=== PATIENT | male | born 1970 | race African-American/Black ===

== ENCOUNTER 2017-02-14 19:23 | Emergency (ER) | payer MEDICAID ==
[~2017-02-14] VITALS: Ht 182.9 cm; Wt 154.3 kg
[~2017-02-14 19:23] MED LIST: CYCL-374; ENAL5TAB; METF500T4; METO100T9 PO; ROSU10TA PO; SITA25TA3
[2017-02-14] MEDS ORDERED: KETOROLAC 60MG/2ML VIAL IM ONE (21:45)
[2017-02-14 22:07] VITALS: BP 119/69
== END 2017-02-14 22:35 | disposition home or self-care (01) ==
LOC: ER 20:13
DX: M25.561 Pain in right knee (principal); M25.532 Pain in left wrist; F17.200 Nicotine dependence, unspecified, uncomplicated; Z90.89 Acquired absence of other organs; W18.30XA Fall on same level, unspecified, initial encounter
CPT/HCPCS: 29125; 73110; 73562; 96372; 99284; J1885; L1830; Z7610

== ENCOUNTER 2018-06-01 09:27 | Emergency (ER) | payer MEDICAID ==
[~2018-06-01] VITALS: Ht 185.4 cm; Wt 148.0 kg
[~2018-06-01 09:27] MED LIST changes: -CYCL-374; +CYCL10TA7; -METF500T4; +METF500T6
[2018-06-01] MEDS ORDERED: SODIUM CHLORIDE 0.9% 1,000 ML IV ONE (10:03)
[2018-06-01] MEDS ORDERED: ONDANSETRON HCL 4MG/2ML VIAL IV STA (10:03)
[2018-06-01 10:15] VITALS: BP 141/76
[2018-06-01 11:03] LABS: CHLORIDE 110 mEq/L (98-107)
[2018-06-01 11:04] LABS: BASOPHILS % 0.6 % (0.0-2.0); EOSINOPHILS % 1.7 % (0.0-5.0); HEMATOCRIT. 46.6 % (42.0-52.0); HEMOGLOBIN. 15.6 g/dL (14.0-18.0); LYMPHOCYTES % 35.5 % (20.0-50.0); MEAN CORPUSCULAR HEMOGLOBIN 29.6 pg (28.0-32.0); MEAN CORPUSCULAR VOLUME 88.4 fL (80.0-94.0); MONOCYTES % 6.4 % (2.0-8.0); NEUTROPHILS % 55.8 % (40.0-76.0); PLATELET 242 x1000/uL (130-400); RED BLOOD CELL COUNT 5.27 mill/uL (4.7-6.1); RED CELL DISTRIBUTION WIDTH 14.8 % (11.6-14.6)
[2018-06-01 11:15] LABS: INR 1.2; PROTHROMBIN TIME 11.6 sec (9.1-11.1)
[2018-06-01 11:20] LABS: CREATINE KINASE 122 IU/L (39-308); CREATINE KINASE MB FRACTION 1.2 ng/mL (0.5-3.6)
[2018-06-01 11:25] LABS: CLARITY URINE CLEAR (CLEAR); COLOR URINE DARK YELLOW (YELLOW); KETONES URINE 2+ (NEGATIVE); LEUKOCYTE ESTERASE URINE NEGATIVE (NEGATIVE); NITRITE URINE NEGATIVE (NEGATIVE); OCCULT BLOOD URINE NEGATIVE (NEGATIVE); PH URINE 5.5 (4.5-8.0); PROTEIN URINE NEGATIVE (NEGATIVE); SPECIFIC GRAVITY URINE 1.033 (1.005-1.030)
== END 2018-06-01 12:31 | disposition home or self-care (01) ==
LOC: ER 09:27
DX: R53.1 Weakness (principal); R42 Dizziness and giddiness; I10 Essential (primary) hypertension; E86.0 Dehydration; E78.00 Pure hypercholesterolemia, unspecified; E66.01 Morbid (severe) obesity due to excess calories; R00.1 Bradycardia, unspecified; Z68.41 Body mass index [BMI] 40.0-44.9, adult; Z90.49 Acquired absence of other specified parts of digestive tract
CPT/HCPCS: 36415; 71045; 80053; 81003; 82550; 82553; 83690; 83735; 83880; 84484; 85025; 85610; 85730; 93005; 96361; 96374; 99285; J2405; J7030

== ENCOUNTER 2019-11-12 11:20 | Emergency (ER) | payer MEDICAID ==
[~2019-11-12] VITALS: Ht 182.9 cm; Wt 155.0 kg
[~2019-11-12 11:20] MED LIST changes: +CRES10 PO; +METF-414; -METF500T6; -ROSU10TA PO
[2019-11-12 11:49] VITALS: BP 151/89
== END 2019-11-12 16:35 | disposition left against medical advice (07) ==
LOC: ER 11:20
DX: Z53.21 Procedure and treatment not carried out due to patient leaving prior to being seen by health care provider (principal)

== ENCOUNTER 2019-11-14 07:02 | Emergency (ER) | payer MEDICAID ==
[~2019-11-14] VITALS: Ht 170.2 cm; Wt 136.0 kg
[2019-11-14] MEDS ORDERED: HYDROCODONE/ACETAMINOPHEN 5/325MG TABLET PO STA (07:56)
[2019-11-14 09:04] LABS: CLARITY URINE CLEAR (CLEAR); COLOR URINE YELLOW (YELLOW); KETONES URINE NEGATIVE (NEGATIVE); LEUKOCYTE ESTERASE URINE NEGATIVE (NEGATIVE); NITRITE URINE NEGATIVE (NEGATIVE); OCCULT BLOOD URINE NEGATIVE (NEGATIVE); PH URINE 6.5 (4.5-8.0); PROTEIN URINE NEGATIVE (NEGATIVE); SPECIFIC GRAVITY URINE 1.024 (1.005-1.030)
[2019-11-14 09:32] LABS: CHLORIDE 109 mEq/L (98-107)
[2019-11-14 09:41] LABS: BASOPHILS % 0.9 % (0.0-2.0); EOSINOPHILS % 2.8 % (0.0-5.0); HEMOGLOBIN. 16.5 g/dL (14.0-18.0); LYMPHOCYTES % 35.5 % (20.0-50.0); MEAN CORPUSCULAR HEMOGLOBIN 29.2 pg (28.0-32.0); MEAN CORPUSCULAR VOLUME 88.3 fL (80.0-94.0); MEAN PLATELET VOLUME 7.8 fl (7.4-10.4); MONOCYTES % 6.3 % (2.0-8.0); NEUTROPHILS % 54.5 % (40.0-76.0); PLATELET 236 x1000/uL (130-400); RED BLOOD CELL COUNT 5.67 mill/uL (4.7-6.1); RED CELL DISTRIBUTION WIDTH 14.8 % (11.6-14.6)
[2019-11-14 10:29] VITALS: BP 134/85
== END 2019-11-14 10:31 | disposition home or self-care (01) ==
LOC: ER 07:30
DX: R30.0 Dysuria (principal); N53.12 Painful ejaculation; N40.0 Benign prostatic hyperplasia without lower urinary tract symptoms; Z98.84 Bariatric surgery status; Z90.49 Acquired absence of other specified parts of digestive tract; Z88.3 Allergy status to other anti-infective agents
CPT/HCPCS: 36415; 80053; 81003; 85025; 99283; Z7610

== ENCOUNTER 2020-07-08 15:20 | Emergency (ER) | payer MEDICAID ==
[~2020-07-08] VITALS: Ht 193 cm; Wt 170.0 kg
[2020-07-08] MEDS ORDERED: ASPIRIN 81MG TABLET PO ONE (17:15)
[2020-07-08] MEDS ORDERED: FAMOTIDINE 20MG TABLET PO ONE (17:15)
[2020-07-08] MEDS ORDERED: VISCOUS LIDOCAINE 2% 15 ML UDC PO ONE (17:15)
[2020-07-08] MEDS ORDERED: MAGNESIUM/ALUMINUM HYDROXIDE/SIMETHICONE 30ML UDC PO ONE (17:15)
[2020-07-08 17:27] LABS: CHLORIDE 110 mEq/L (98-107)
[2020-07-08 17:28] LABS: BASOPHILS % 0.7 % (0.0-2.0); EOSINOPHILS % 1.7 % (0.0-5.0); HEMATOCRIT. 47.1 % (42.0-52.0); HEMOGLOBIN. 15.7 g/dL (14.0-18.0); LYMPHOCYTES % 26.6 % (20.0-50.0); MEAN CORPUSCULAR VOLUME 87.2 fL (80.0-94.0); MEAN PLATELET VOLUME 7.8 fl (7.4-10.4); MONOCYTES % 7.9 % (2.0-8.0); NEUTROPHILS % 63.1 % (40.0-76.0); PLATELET 240 x1000/uL (130-400); RED BLOOD CELL COUNT 5.41 mill/uL (4.7-6.1); RED CELL DISTRIBUTION WIDTH 15.2 % (11.6-14.6)
[2020-07-08 20:00] VITALS: BP 134/87
== END 2020-07-08 22:01 | disposition home or self-care (01) ==
LOC: ER 15:20
DX: K21.9 Gastro-esophageal reflux disease without esophagitis (principal); F17.290 Nicotine dependence, other tobacco product, uncomplicated; Z88.1 Allergy status to other antibiotic agents; Z79.899 Other long term (current) drug therapy; Z90.49 Acquired absence of other specified parts of digestive tract; Z98.890 Other specified postprocedural states
CPT/HCPCS: 36415; 71045; 80053; 83690; 83880; 84484; 85025; 93005; 99285; 99406; Z7610

== ENCOUNTER 2020-08-17 17:37 | Emergency (ER) | payer MEDICAID ==
[~2020-08-17] VITALS: Ht 185.4 cm; Wt 155.0 kg
[2020-08-17] MEDS ORDERED: PREDNISONE 20MG TABLET PO ONE (18:15)
[2020-08-17] MEDS ORDERED: DIPHENHYDRAMINE 50MG CAPSULE PO ONE (18:15)
[2020-08-17] MEDS ORDERED: FAMOTIDINE 20MG TABLET PO ONE (18:15)
[2020-08-17 20:06] VITALS: BP 141/79
== END 2020-08-17 20:08 | disposition home or self-care (01) ==
LOC: ER 17:37
DX: T78.49XA Other allergy, initial encounter (principal); X58.XXXA Exposure to other specified factors, initial encounter; K21.9 Gastro-esophageal reflux disease without esophagitis; Z90.49 Acquired absence of other specified parts of digestive tract; Z79.899 Other long term (current) drug therapy; Z88.1 Allergy status to other antibiotic agents
CPT/HCPCS: 93005; 99284; J7512; Q0163

== ENCOUNTER 2020-10-16 18:11 | Emergency (ER) | payer MEDICAID ==
[~2020-10-16] VITALS: Ht 185.4 cm; Wt 147.0 kg
[2020-10-16] MEDS ORDERED: ONDANSETRON 4MG ODT PO ONE (19:45)
[2020-10-16 20:13] VITALS: BP 156/97
== END 2020-10-16 20:14 | disposition home or self-care (01) ==
LOC: ER 18:11
DX: U07.1 COVID-19 (principal); K52.9 Noninfective gastroenteritis and colitis, unspecified; K21.9 Gastro-esophageal reflux disease without esophagitis; N40.0 Benign prostatic hyperplasia without lower urinary tract symptoms; Z88.3 Allergy status to other anti-infective agents
CPT/HCPCS: 99283; C9803; Q0162; U0003

== ENCOUNTER 2020-10-24 09:21 | Emergency (ER) | payer MEDICAID ==
[~2020-10-24] VITALS: Ht 177.8 cm; Wt 135.0 kg
[2020-10-24 10:18] LABS: BASOPHILS % 1.7 % (0.0-2.0); EOSINOPHILS % 2.9 % (0.0-5.0); HEMATOCRIT. 47.9 % (42.0-52.0); HEMOGLOBIN. 15.9 g/dL (14.0-18.0); LYMPHOCYTES % 33.3 % (20.0-50.0); MEAN CORPUSCULAR HEMOGLOBIN 28.5 pg (28.0-32.0); MEAN CORPUSCULAR VOLUME 86.1 fL (80.0-94.0); MEAN PLATELET VOLUME 7.4 fl (7.4-10.4); MONOCYTES % 5.6 % (2.0-8.0); NEUTROPHILS % 56.5 % (40.0-76.0); PLATELET 273 x1000/uL (130-400); RED BLOOD CELL COUNT 5.56 mill/uL (4.7-6.1); RED CELL DISTRIBUTION WIDTH 14.7 % (11.6-14.6)
[2020-10-24 10:24] LABS: CHLORIDE 108 mEq/L (98-107)
[2020-10-24 11:00] LABS: BG CARBOXYHEMOGLOBIN 1.1 % (0.5-1.5); BG DEOXYHEMOGLOBIN 4.4 % (0.0-5.0); BG HCO3 ACT 21.4 mmol/L (22.0-26.0); BG METHEMOGLOBIN 0.1 % (0.0-1.5); BG OXYGEN SATURATION 95.5 % (92.0-98.5); BG OXYHEMOGLOBIN 94.4 % (94.0-97.0); BG PCO2 36.7 mmHg (35.0-45.0); BG PH 7.384 (7.350-7.450); BG PO2 77.4 mmHg (75.0-100.0); BG SAMPLE SITE RIGHT RADIAL; BG TOTAL HEMOGLOBIN 16.2 g/dL (12.0-18.0); BG VENT MODE ROOM AIR
[2020-10-24 11:45] VITALS: BP 133/82
== END 2020-10-24 12:19 | disposition home or self-care (01) ==
LOC: ER 09:42
DX: U07.1 COVID-19 (principal); I10 Essential (primary) hypertension; Z79.899 Other long term (current) drug therapy; Z88.1 Allergy status to other antibiotic agents
CPT/HCPCS: 36415; 36600; 71045; 80053; 82375; 82805; 83880; 84484; 85025; 93005; 99285

== ENCOUNTER 2020-11-06 12:17 | Emergency (ER) | payer MEDICAID ==
[~2020-11-06] VITALS: Ht 185.4 cm; Wt 147.0 kg
[~2020-11-06 12:17] MED LIST changes: -ENAL5TAB; +ENAL5TAB21
[2020-11-06 12:20] VITALS: BP 150/95
[2020-11-06] MEDS ORDERED: AMOX-424 PO (12:41)
== END 2020-11-06 14:20 | disposition home or self-care (01) ==
LOC: ER 12:23
DX: H66.92 Otitis media, unspecified, left ear (principal); I10 Essential (primary) hypertension; Z86.19 Personal history of other infectious and parasitic diseases; Z98.84 Bariatric surgery status; Z90.89 Acquired absence of other organs; Z88.1 Allergy status to other antibiotic agents
CPT/HCPCS: 99283

== ENCOUNTER 2021-08-01 07:35 | Emergency (ER) | payer MEDICAID ==
[~2021-08-01] VITALS: Ht 182.9 cm; Wt 147.0 kg
[~2021-08-01 07:35] MED LIST changes: +AMOX-424 PO
[2021-08-01 09:25] LABS: CHLORIDE 109 mEq/L (98-107)
[2021-08-01 09:27] VITALS: BP 137/82
== END 2021-08-01 09:28 | disposition home or self-care (01) ==
LOC: ER 07:35
DX: S86.911A Strain of unspecified muscle(s) and tendon(s) at lower leg level, right leg, initial encounter (principal); E11.9 Type 2 diabetes mellitus without complications; E66.01 Morbid (severe) obesity due to excess calories; Z68.41 Body mass index [BMI] 40.0-44.9, adult; Z98.84 Bariatric surgery status; Z90.49 Acquired absence of other specified parts of digestive tract; Z88.1 Allergy status to other antibiotic agents; X58.XXXA Exposure to other specified factors, initial encounter; Y93.89 Activity, other specified; Y92.018 Other place in single-family (private) house as the place of occurrence of the external cause
CPT/HCPCS: 36415; 80048; 83735; 93971; 99284

== ENCOUNTER 2022-06-07 01:04 | Emergency (ER) | payer MEDICAID, OTHER ==
[~2022-06-07] VITALS: Ht 188 cm; Wt 155.0 kg
[~2022-06-07 01:04] MED LIST changes: +CYCL10TA21; -CYCL10TA7
[2022-06-07 02:44] LABS: BASOPHILS % 1.1 % (0.0-2.0); EOSINOPHILS % 5.3 % (0.0-5.0); HEMATOCRIT. 42.9 % (42.0-52.0); HEMOGLOBIN. 14.2 g/dL (14.0-18.0); LYMPHOCYTES % 18.9 % (20.0-50.0); MEAN CORPUSCULAR HEMOGLOBIN 28.5 pg (28.0-32.0); MEAN PLATELET VOLUME 6.9 fl (7.4-10.4); MONOCYTES % 9.3 % (2.0-8.0); NEUTROPHILS % 65.4 % (40.0-76.0); PLATELET 280 x1000/uL (130-400); RED BLOOD CELL COUNT 4.99 mill/uL (4.7-6.1); RED CELL DISTRIBUTION WIDTH 16.4 % (11.6-14.6)
[2022-06-07 03:10] LABS: CHLORIDE 110 mEq/L (98-107)
[2022-06-07] MEDS ORDERED: ASPIRIN 81MG TABLET PO ONE (04:30)
[2022-06-07] MEDS ORDERED: ASPI-1497 MT (05:07)
[2022-06-07 05:23] VITALS: BP 129/75
== END 2022-06-07 05:26 | disposition home or self-care (01) ==
LOC: ER 01:04
DX: F41.9 Anxiety disorder, unspecified (principal); I10 Essential (primary) hypertension; R42 Dizziness and giddiness; E11.9 Type 2 diabetes mellitus without complications; Z98.84 Bariatric surgery status; Z96.659 Presence of unspecified artificial knee joint; Z90.49 Acquired absence of other specified parts of digestive tract; Z88.3 Allergy status to other anti-infective agents
CPT/HCPCS: 36415; 70450; 71045; 80053; 83880; 84484; 85025; 93005; 99285; Z7610

== ENCOUNTER 2022-08-03 12:55 | Emergency (ER) | payer MEDICAID ==
[~2022-08-03] VITALS: Ht 190.5 cm; Wt 160.0 kg
[~2022-08-03 12:55] MED LIST changes: +ASPI-1497 MT
[2022-08-03 12:57] VITALS: BP 168/96
== END 2022-08-03 18:44 | disposition left against medical advice (07) ==
LOC: ER 12:55
DX: Z53.21 Procedure and treatment not carried out due to patient leaving prior to being seen by health care provider (principal)

== ENCOUNTER 2022-08-10 06:47 | Emergency (ER) | payer MEDICAID ==
[~2022-08-10] VITALS: Ht 188 cm; Wt 164.0 kg
[2022-08-10 06:58] VITALS: BP 154/100
[2022-08-10] MEDS ORDERED: ALBUTEROL (0.083%) 2.5MG/3ML NEB HHN STA (08:27)
[2022-08-10] MEDS ORDERED: PREDNISONE 20MG TABLET PO STA (08:27)
[2022-08-10] MEDS ORDERED: IPRATROPIUM BROMIDE (0.02%) 0.5MG/2.5ML NEB HHN STA (08:27)
[2022-08-10] MEDS ORDERED: ALBU6.7H3 INH (10:50)
[2022-08-10] MEDS ORDERED: FLUT1DIS3 INH (10:50)
== END 2022-08-10 11:11 | disposition home or self-care (01) ==
LOC: ER 06:47
DX: J45.909 Unspecified asthma, uncomplicated (principal); Z20.822 Contact with and (suspected) exposure to COVID-19; Z90.49 Acquired absence of other specified parts of digestive tract
CPT/HCPCS: 71045; 87426; 87804; 93005; 94644; 99285; C9803; J7512; Z7610